=== PATIENT | male | born 1975 | race African-American/Black ===

== ENCOUNTER 2024-11-23 13:28 | Emergency (ER) | payer MEDICAID ==
[~2024-11-23] VITALS: Ht 177.8 cm; Wt 100.0 kg
[2024-11-23 13:33] VITALS: O2SAT 100
[2024-11-23 14:00] VITALS: TEMP 37.1
[2024-11-23 14:58] LABS: BASOPHILS % 0.8 % (0.0-2.0); CHLORIDE 104 mEq/L (98-107); HEMATOCRIT. 42.8 % (42.0-52.0); HEMOGLOBIN. 14.2 g/dL (14.0-18.0); LYMPHOCYTES % 12.8 % (20.0-50.0); MEAN CORPUSCULAR HEMOGLOBIN 29.4 pg (28.0-32.0); MEAN CORPUSCULAR HGB CONC 33.1 g/dL (31.0-37.0); MEAN CORPUSCULAR VOLUME 88.8 fL (80.0-94.0); MEAN PLATELET VOLUME 9.2 fl (7.4-10.4); MONOCYTES % 11.5 % (2.0-8.0); NEUTROPHILS % 73.9 % (40.0-76.0); PLATELET 199 x1000/uL (130-400); POTASSIUM 4.1 mEq/L (3.5-5.1); RED BLOOD CELL COUNT 4.82 mill/uL (4.7-6.1); RED CELL DISTRIBUTION WIDTH 15.1 % (11.6-14.6); SODIUM 139 mEq/L (136-145); WHITE BLOOD COUNT 4.8 x1000/uL (4.5-11.0)
[2024-11-23 14:59] LABS: CALCIUM 9.5 mg/dL (8.7-10.4); CARBON DIOXIDE 30 mEq/L (21-32)
[2024-11-23 15:04] LABS: CREATININE 1.4 mg/dL (0.6-1.3); GLUCOSE 108 mg/dL (70-105)
[2024-11-23 15:05] LABS: TROPONIN I HIGH SENSITIVITY 5 ng/L (3.0-53); UREA NITROGEN BLOOD 15 mg/dL (9-23)
[2024-11-23 15:06] LABS: ALANINE AMINOTRANSFERASE 21 IU/L (10-49); ALBUMIN 4.5 g/dL (3.2-4.8); ASPARTATE AMINOTRANSFERASE 25 IU/L (<34); BILIRUBIN DIRECT < 0.1 mg/dL (<=3.0)
[2024-11-23 15:07] LABS: BILIRUBIN TOTAL 0.3 mg/dL (0.1-1.0)
[2024-11-23 15:08] LABS: PROTHROMBIN TIME 10.4 sec (9.6-11.0)
[2024-11-23 19:00] LABS: TROPONIN I HIGH SENSITIVITY 4 ng/L (3.0-53)
[2024-11-23 20:25] VITALS: BP 135/99; PULSE 90; RESP 21; O2SAT 99
== END 2024-11-23 20:30 | disposition home or self-care (01) ==
LOC: ER 13:28
DX: R07.89 Other chest pain (principal)
CPT/HCPCS: 80076; 80048; 83690; 85025; 85610; 84484; 36415; 71045; 93005; 99285; Z7610